=== PATIENT | female | born 1955 | race Caucasian/White ===

== ENCOUNTER 2017-05-04 07:16 | Day surgery (SDC) | payer BC, OTHER ==
[~2017-05-04] VITALS: Ht 149.9 cm; Wt 53.8 kg
[~2017-05-04 07:16] MED LIST: NO HOME MEDS
[2017-05-04 08:17] VITALS: Ht 149.9 cm; Wt 53.8 kg
[2017-05-04] MEDS ORDERED: MELO-109 PO (08:24)
[2017-05-04] MEDS ORDERED: BACL10TA PO (08:24)
[2017-05-04] MEDS ORDERED: LIDOCAINE 2% (SDV) 5 ML INJ ONE (09:16)
[2017-05-04] MEDS ORDERED: PROPOFOL 60 ML ONE (09:16)
[2017-05-04 09:30] VITALS: BP 133/70; PULSE 73; RESP 24
--- NOTE | 2017-05-04 10:08 | OPR ---
Date/Time of Note Date/Time of Note DATE: 05/04/17 TIME: 10:05 Operative Report Preoperative Diagnosis Colon cancer and a positive stool guaiac Postoperative Diagnosis 1. Gastritis 2. Colonoscopy negative right hemicolectomy anastomosis was normal patient had a small hemorrhoid Operation/Procedure Performed 1. EGD with biopsy 2. Colonoscopy Surgeon: BYRON MCCORMICK MD Anesthesia: MAC Estimated Blood Loss: none Specimens EGD with biopsy for biopsy Complications: None BYRON MCCORMICK MD May 04, 2017 10:08
--- NOTE | 2017-05-04 11:53 | GILP ---
DATE OF PROCEDURE: 05/04/2017 PROCEDURE PERFORMED: Esophagogastroduodenoscopy with biopsy and colonoscopy. INDICATION: A 62-year-old female undergoing this procedure for colon cancer screening. She had colon cancer and right hemicolectomy almost 11 years ago. Her stool for occult blood was positive. An upper endoscopy also to find out loss of GI blood loss from the upper GI lesion. The risks of the procedure and related complications and anesthetic risks and alternatives discussed. Informed consent was obtained. DESCRIPTION OF PROCEDURE: The patient was brought to the GI lab, sedated by Dr. Dominguez. After optimum sedation, scope was positive much ease into the esophagus, which was grossly normal. Z-line was normal. Stomach mucosa revealed patchy gastritis. Duodenum, 1st and 2nd part were within normal limits. Multiple biopsies obtained to rule out H pylori infection. Retroflexion was normal. The scope was straightened out and removed with good patient tolerance. IMPRESSION: 1. Chronic pangastritis. 2. Normal esophagus. 3. Normal Z-line. 4. Normal duodenum and ampulla. PLAN: Review histopathology COLONOSCOPY REPORT: Patient was turned around. Scope was passed with much ease into the rectum. At 30 cm, he had some assistance from the scar tissue. Managed to pass the scope and at 60 cm the small bowel anastomosis was seen. Anastomosis appeared normal. Small intestine up to 2 feet was normal. Scope was then gradually withdrawn. Rest of the colon appeared normal. Hemorrhoid was identified. Digital examination was normal. IMPRESSION: 1. Right hemicolectomy. 2. Normal anastomosis. 3. Hemorrhoids. 4. Scar tissue. 5. Clarity and cleanliness was good. PLAN: Start on high-fiber diet. Next colonoscopy after 5 years. Dictated By: Elvin Roblero MD /[email or web address] /Document#: [id number] CC: Elvin Roblero MD; Primary MD;*EndCC*
== END 2017-05-04 14:41 | disposition home or self-care (01) ==
LOC: GIL 07:16
PROVIDERS: ATTEND Internal Medicine Gastroenterology
DX: Z12.11 Encounter for screening for malignant neoplasm of colon (principal); K64.9 Unspecified hemorrhoids; K29.50 Unspecified chronic gastritis without bleeding; M19.90 Unspecified osteoarthritis, unspecified site; Z85.038 Personal history of other malignant neoplasm of large intestine
CPT/HCPCS: 43239; 45378; 88305; 88312; Z7610